=== PATIENT | female | born 1995 | race Two or more races ===

== ENCOUNTER 2023-09-28 19:48 | Emergency (ER) | payer MEDICAID ==
[~2023-09-28] VITALS: Ht 154.9 cm; Wt 100.0 kg
[2023-09-28 21:22] LABS: Basophils # (auto) 0.1 10 ^3/uL (0-0.2); Eosinophils # (auto) 0.1 10 ^3/uL (0-0.8); Eosinophils % (auto) 1.1 % (0.0-7.0); Hemoglobin 11.2 g/dL (12.2-16.2); Monocytes # (auto) 0.8 10 ^3/uL (0-1.3); Nucleated Red Blood Cells % 0.1 %; Red Cell Distribution Width 13.4 % (11.8-14.3)
[2023-09-28 21:24] LABS: Basophils % (auto) 0.7 % (0.0-2.0); Hematocrit 33.8 % (36.0-46.0); Lymphocytes # (auto) 3.5 10 ^3/uL (0.4-5.4); Lymphocytes % (auto) 35.8 % (10.0-50.0); Mean Corpuscular Hemoglobin 32.1 pg (28.0-32.0); Mean Corpuscular Hgb Conc. 33.2 g/dL (32.0-36.0); Mean Corpuscular Volume 96.7 fL (80.0-100.0); Monocytes % (auto) 7.8 % (0.0-12.0); Neutrophils # (auto) 5.3 10 ^3/uL (1.6-8.6); Neutrophils % (auto) 54.6 % (37.0-80.0); White Blood Cell 9.7 10^3/uL (4.4-10.8)
[2023-09-28 21:41] LABS: Acetaminophen < 2.0 UG/ML (10.0-20.0); Alanine Aminotransferase 14 U/L (7-40); Albumin 4.6 g/dL (3.2-4.8); Alkaline Phosphatase 84 U/L (46-116); Anion Gap 6 (5-15); Aspartate Aminotransferase 21 U/L (13-40); Blood Alcohol < 3.0 mg/dL (<10); Calcium 9.8 mg/dL (8.5-10.1); Carbon Dioxide 28 mmol/L (20-30); Chloride 104 mmol/L (98-107); Glucose 79 mg/dL (74-106); Potassium 3.9 mmol/L (3.5-5.1); Sodium 138 mmol/L (136-145)
[2023-09-28 21:42] LABS: BUN/Creatinine Ratio 7.5 (10.0-20.0); Bilirubin, Total 0.3 mg/dL (0.2-1.0); Blood Urea Nitrogen < 5 mg/dL (9-23); Total Protein 7.2 g/dL (5.7-8.2)
[2023-09-28 22:32] LABS: Salicylate < 3.0 mg/dL (2.8-20.0)
[2023-09-28 23:19] VITALS: PULSE 72; RESP 18; O2SAT 99
[2023-09-28 23:29] LABS: Urine Bacteria NONE SEEN /hpf (None Seen); Urine Blood Negative /uL (Negative); Urine Clarity Clear (Clear); Urine Color Yellow (Yellow); Urine Mucus FEW (None Seen); Urine Protein, UAD Negative (Negative); Urine Specific Gravity 1.018 (1.001-1.035); Urine Urobilinogen Normal (Negative); Urine WBC 1 /hpf (0 - 5)
[2023-09-28 23:45] LABS: Amphetamine Screen, Urine Neg (NEGATIVE); Barbiturate Scree,Urine Neg (NEGATIVE); Benzodiazephine Screen, Urine Neg (NEGATIVE); Cannabinoid Screen, Urine Neg (NEGATIVE); Cocaine Screen, Urine Neg (NEGATIVE); Opiate Scree,Urine Neg (NEGATIVE); Phencyclidine Screen, Urine Neg (NEGATIVE)
[2023-09-29 07:52] VITALS: RESP 16; O2SAT 99
[2023-09-29 14:30] VITALS: BP 100/58; PULSE 82; RESP 18; TEMP 98.5; O2SAT 98
== END 2023-09-29 14:38 ==
LOC: EDBD 19:48 → ER 19:48
DX: R45.851 Suicidal ideations (principal); R10.2 Pelvic and perineal pain; I10 Essential (primary) hypertension; F31.9 Bipolar disorder, unspecified; Z79.899 Other long term (current) drug therapy
CPT/HCPCS: 36415; 80053; 80307; 80320; 80329; 81001; 84702; 85025